=== PATIENT | female | born 1965 | race Caucasian/White ===

== ENCOUNTER 2018-06-10 18:39 | Emergency (ER) | payer OTHER ==
[2018-06-10] MEDS ORDERED: Haloperidol Lactate 5 MG/ML SDV IM ONE (19:21)
[2018-06-10] MEDS ORDERED: Ondansetron 4 MG/2 ML SDV IVPUSH ONE (19:21)
[2018-06-10] MEDS ORDERED: Sodium Chloride 0.9% 500 ML IV ONE (19:21)
[2018-06-10] MEDS ORDERED: Benztropine 1 MG Tab PO STA (19:21)
--- NOTE | 2018-06-10 19:23 | EDM.PDOC ---
ED HPI GENERAL MEDICAL PROBLEM - General Chief Complaint: Headache Stated Complaint: MIGRAINE/BURNING IN CHEST Time Seen by Provider: 06/10/18 19:02 Source of Information: Reports: Patient, RN Notes Reviewed History Limitations: Reports: No Limitations - History of Present Illness INITIAL COMMENTS - FREE TEXT/NARRATIVE: The patient states that she developed a headache around 10:00 yesterday morning , , 06/09/2017. Initially the headache involved her whole head, however, today it involves just the right side of her head. She describes the headache as a steady pain felt above her right eye. She has had nausea, and one episode of emesis around noon today, plus an episode of dry heaves just prior to coming to the ED, which produced a brief burning sensation in her central chest. The patient denies visual changes, but reports both photophobia and phonophobia. She denies neurologic symptoms, such as tingling, numbness, or weakness. She states that she has had similar headaches in the past. Many years ago, she is to get frequent such headaches, but more recently, they have become less frequent. She states that her last similar headache was about 3 months ago. She states that she had previously been evaluated by both Dr. Oneil and a neurologist , and she was diagnosed with migraines. She states that she has previously been prescribed Zomig, which did not help. The patient states that the last imaging study of her head was 5-10 years ago. Right Head Pain Score (Numeric/FACES): 8 - Related Data Allergies Allergy/AdvReac Type Severity Reaction Status Date / Time No Known Allergies Allergy Verified 04/02/16 18:38 Home Meds: Home Meds Ferrous Sulfate [Iron] 325 mg PO DAILY 06/10/18 [History] Multivitamin [Multivitamins] 1 tab PO DAILY 06/10/18 [History] Rizatriptan Benzoate [Rizatriptan] 1 tab PO Q2H PRN #3 tab.rapdis 06/10/18 [Rx] Past Medical History Neurological History: Reports: Migraines Hematologic History: Reports: Anemia - Past Surgical History HEENT Surgical History: Reports: Oral Surgery (wisdom teeth extraction) Female Surgical History: Reports: Endometrial Ablation Musculoskeletal Surgical History: Reports: Arthroscopic Knee (right ACL repair) , Ganglion Cyst (right wrist) Social & Family History - Tobacco Use Smoking Status *Q: Never Smoker - Caffeine Use Caffeine Use: Reports: Coffee - Alcohol Use Alcohol Use History: Yes Alcohol Use Frequency: Socially - Recreational Drug Use Recreational Drug Use: No - Living Situation & Occupation Living situation: Reports: , with Spouse, with Family (Daughter) Occupation: Employed (Director at [employer]) ED ROS GENERAL - Review of Systems Review Of Systems: ROS reveals no pertinent complaints other than HPI. - Physical Exam Exam: See Below Exam Limited By: No Limitations General Appearance: Alert, WD/WN, No Apparent Distress Eye Exam: Bilateral Eye: EOMI, Normal Inspection, PERRL Ears: Normal External Exam, Normal Canal, Hearing Grossly Normal, Normal TMs Nose: Normal Inspection, Normal Mucosa, No Blood Throat/Mouth: Normal Inspection, Normal Lips, Normal Teeth, Normal Gums, Normal Oropharynx, Normal Voice, No Airway Compromise Head Exam: Atraumatic, Normocephalic Neck: Normal Inspection, Supple, Non-Tender, Full Range of Motion. No: Lymphadenopathy (L), Lymphadenopathy (R) Respiratory/Chest: No Respiratory Distress, Lungs Clear, Normal Breath Sounds, No Accessory Muscle Use Cardiovascular: Normal Peripheral Pulses, Regular Rate, Rhythm, No Edema, No Gallop, No JVD, No Murmur, No Rub GI/Abdominal: Normal Bowel Sounds, Soft, Non-Tender, No Organomegaly, No Distention, No Abnormal Bruit, No Mass (Female) Exam: Deferred Rectal (Female) Exam: Deferred Neuro Exam (Abbreviated): Alert, Oriented, CN II-XII Intact, Normal Cognition, No Motor/Sensory Deficits Back Exam: Normal Inspection, Full Range of Motion, NT Extremities: Normal Inspection, Normal Range of Motion, No Pedal Edema, Normal Capillary Refill Psychiatric: Normal Affect Skin Exam: Warm, Dry, Intact, Normal Color, No Rash Course - Vital Signs Last Recorded V/S: Last Vital Signs Temp 36.9 C 06/10/18 19:11 Pulse 82 06/10/18 19:11 Resp 20 06/10/18 19:11 BP 127/73 06/10/18 19:11 Pulse Ox 100 06/10/18 19:11 - Orders/Labs/Meds Orders: Active Orders 24 hr Category Date Time Status EKG Documentation Completion [RC] STAT Care 06/10/18 19:21 Active Labs: Laboratory Tests 06/10/18 06/10/18 Range/Units 18:50 18:50 WBC 6.56 (3.98-10.04) K/mm3 RBC 4.80 (3.98-5.22) M/mm3 Hgb 12.7 (11.2-15.7) gm/L Hct 39.6 (34.1-44.9) % MCV 82.5 (79.4-94.8) fl MCH 26.5 (25.6-32.2) pg MCHC 32.1 L (32.2-35.5) g/dl RDW Std Deviation 39.1 (36.4-46.3) fL Plt Count 277 (182-369) K/mm3 MPV 9.5 (9.4-12.3) fl Neutrophils % (Manual) 82 H (40-60) % Band Neutrophils % 0 (0-10) % Lymphocytes % (Manual) 14 L (20-40) % Atypical Lymphs % 0 % Monocytes % (Manual) 4 (2-10) % Eosinophils % (Manual) 0 L (0.7-5.8) % Basophils % (Manual) 0 L (0.1-1.2) Platelet Estimate Adequate Hypochromasia Few Poikilocytosis 1+ slight Ovalocytes 1+ slight Sodium 139 (136-145) mEq/L Potassium 3.7 (3.5-5.1) mEq/L Chloride 101 (98-107) mEq/L Carbon Dioxide 26 (21-32) mEq/L Anion Gap 15.7 H (5-15) BUN 14 (7-18) mg/dL Creatinine 0.9 (0.55-1.02) mg/dL Est Cr Clr Drug Dosing 67.29 mL/min Estimated GFR (MDRD) > 60 (>60) mL/min BUN/Creatinine Ratio 15.6 (14-18) Glucose 97 (74-106) mg/dL Calcium 9.7 (8.5-10.1) mg/dL Total Bilirubin 0.5 (0.2-1.0) mg/dL AST 21 (15-37) U/L ALT 28 (14-59) U/L Alkaline Phosphatase 49 (46-116) U/L Troponin I < 0.017 (0.00-0.056) ng/mL Total Protein 8.4 H (6.4-8.2) g/dl Albumin 4.3 (3.4-5.0) g/dl Globulin 4.1 gm/dL Albumin/Globulin Ratio 1.1 (1-2) Meds: Medications Discontinued Medications Generic Name Dose Route Start Last Admin Trade Name Barbara PRN Reason Stop Dose Admin Benztropine Mesylate 1 mg 06/10/18 19:21 06/10/18 20:03 Cogentin PO 06/10/18 19:22 1 mg ONETIME STA Administration Haloperidol Lactate 5 mg 06/10/18 19:21 06/10/18 20:00 Haldol IM 06/10/18 19:22 5 mg ONETIME ONE Administration Sodium Chloride 500 mls @ 1,000 mls/hr 06/10/18 19:21 06/10/18 19:57 Normal Saline IV 06/10/18 19:50 1,000 mls/hr .BOLUS ONE Administration Ondansetron HCl 4 mg 06/10/18 19:21 06/10/18 20:02 Zofran IVPUSH 06/10/18 19:22 4 mg ONETIME ONE Administration - Re-Assessments/Exams Free Text/Narrative Re-Assessment/Exam: 06/10/18 19:23 The patient's headache may be migrainous. She will be treated with IM Haldol, oral Cogentin, IV Zofran, and IV fluid. The patient's brief chest pain is almost certainly due to acid reflux while retching, nevertheless, I have ordered some blood work that includes a troponin level, as well as an ECG. 06/10/18 20:17 CT of the head without contrast is read by Dr. Vick as: 1. Small finding within the left basal ganglia as noted above felt to be old. 2. Nothing acute is seen on noncontrast head CT exam. 06/10/18 20:58 Test results discussed with the patient. Today's workup is unremarkable. The patient reports that her headache severity has decreased from 8-9 to 4-5 following IM Haldol. This confirms that the patient's headache was migrainous. I will discharge her home with a prescription for Maxalt. Departure - Departure Time of Disposition: 20:58 Disposition: Home, Self-Care 01 Condition: Fair Clinical Impression: Migraine headache - Discharge Information *PRESCRIPTION DRUG MONITORING PROGRAM REVIEWED*: Not Applicable *COPY OF PRESCRIPTION DRUG MONITORING REPORT IN PATIENT ZEN: Not Applicable Prescriptions: Rizatriptan Benzoate [Rizatriptan] 1 tab PO Q2H PRN #3 tab.rapdis PRN Reason: Headache Instructions: Migraine Headache, [id number] Referrals: Kervin Oneil MD [Primary Care Provider] - Forms: ED Department Discharge Additional Instructions: You were seen in the emergency room for a headache with nausea and chest pain with dry heaving. Workup in the ER included blood work, a CT scan of your head, and an ECG. Your entire workup was unremarkable. You have not suffered a heart attack. You had significant improvement in your headache following IM Haldol, essentially confirming that your headache was a migraine. Get plenty of rest tonight and a dark, quiet place. Stay adequately hydrated. A prescription for the anti-migraine medicine Maxalt (rizatriptan) has been sent to the [facility], [address] [place] [address]. Dissolve 1 tablet in your mouth, like a lozenge, at the earliest sign of a migraine. You may repeat after 2 hours, to a maximum of 3 tablets within a 24-hour period. If this medicine works for you, Dr. Oneil can prescribe you more. If any other problems, please do not hesitate to return to the ER. - My Orders Last 24 Hours: My Active Orders 06/10/18 19:21 EKG Documentation Completion [RC] STAT - Assessment/Plan Last 24 Hours: My Active Orders 06/10/18 19:21 EKG Documentation Completion [RC] STAT
--- NOTE | 2018-06-10 19:55 | CT ---
Head CT Technique: Multiple axial sections through the brain were obtained. Intravenous contrast was not utilized. Comparison: Previous MRI brain of 08/03/13. Findings: Old lacunar infarct or possibly prominent perivascular space is noted within the left basal ganglia. No other abnormal parenchymal densities are seen. Ventricles along with basal cisterns and sulci over the convexities are within normal limits. No evidence of intracranial hemorrhage. No midline shift or mass effect is seen. Bone window settings were reviewed which shows no acute calvarial abnormality. Visualized sinuses are clear. Impression: 1. Small finding within the left basal ganglia as noted above felt to be old. 2. Nothing acute is seen on noncontrast head CT exam. Diagnostic code #2
== END 2018-06-10 21:20 | disposition home or self-care (01) ==
LOC: JD.ED 18:39
DX: G43.909 Migraine, unspecified, not intractable, without status migrainosus (principal)
CPT/HCPCS: 36415; 70450; 80053; 84484; 85007; 85027; 93005; 96361; 96372; 96374; 99285; A9270; J1630; J2405; J7040

== ENCOUNTER 2024-02-25 14:23 | Emergency (ER) | payer BC, OTHER ==
[2024-02-25] MEDS: Hyoscyamine 0.125 MG Tab.SL SL ONE (15:10)
[2024-02-25] MEDS: Sodium Chloride 0.9% 1,000 ML IV STA (15:11)
[2024-02-25] MEDS: Sodium Chloride 0.9% 10 ML Syringe FLUSH PRN (15:12)
[2024-02-25] MEDS: Ondansetron 4 MG/2 ML SDV IVPUSH ONE (15:12)
[2024-02-25 15:37] LABS: BASOPHILS PERCENT AUTO 0.5 % (0.0-1.0); EOSINOPHILS PERCENT AUTO 0.7 % (0.0-6.0); HEMATOCRIT 35.6 % (37.0-47.0); HEMOGLOBIN 11.7 gm/dl (12.0-16.0); IMMATURE GRAN ABSOLUTE AUTO 0.01 K/mm3 (0.00-0.05); IMMATURE GRAN PERCENT AUTO 0.2 % (0.0-0.4); LYMPHOCYTES ABSOLUTE AUTO 1.4 K/mm3 (1.0-4.8); LYMPHOCYTES PERCENT AUTO 32.2 % (24.0-44.0); MEAN CORPUSCULAR HEMOGLOBIN 28.1 pg (28.0-32.0); MEAN CORPUSCULAR HGB CONC 32.9 g/dl (32.0-36.0); MEAN CORPUSCULAR VOLUME 85.6 fl (83.0-99.0); MEAN PLATELET VOLUME 9.4 fl (9.4-12.3); MONOCYTES ABSOLUTE AUTO 0.3 K/mm3 (0.0-0.8); MONOCYTES PERCENT AUTO 6.7 % (0.0-8.0); NEUTROPHILS ABSOLUTE AUTO 2.6 K/mm3 (1.8-7.7); NEUTROPHILS PERCENT AUTO 59.7 % (41.0-71.0); PLATELET COUNT,PLT 169 K/mm3 (150-400); RED BLOOD CELL COUNT 4.16 M/mm3 (4.10-5.30); WHITE BLOOD CELL COUNT,WBC 4.35 K/mm3 (3.9-11.3)
[2024-02-25 15:43] LABS: A/G RATIO 1.3 (1-2); ALBUMIN 3.8 g/dl (3.4-5.0); ANION GAP 11.8 (5-15); BILIRUBIN TOTAL 0.5 mg/dL (0.2-1.0); BUN/CREATININE RATIO 11.7 (14-18); C-REACTIVE PROTEIN 0.12 mg/dL (<0.30); CALCIUM 9.2 mg/dL (8.5-10.1); CREATININE 1.2 mg/dL (0.55-1.02); EST CRCL DRUG DOSING (CG) 47.1 mL/min; POTASSIUM,K 3.8 mEq/L (3.5-5.1); PROTEIN TOTAL,TP 6.8 g/dl (6.4-8.2)
== END 2024-02-25 16:34 | disposition home or self-care (01) ==
LOC: JD.ED 14:23
DX: K80.50 Calculus of bile duct without cholangitis or cholecystitis without obstruction (principal)
CPT/HCPCS: 36415; 76705; 80053; 83690; 85025; 86140; 96360; 99284; A9270; J3490; J7030; 99283